=== PATIENT | female | born 1980 | race Two or more races ===

== ENCOUNTER → 2023-07-28 | Outpatient (CLI) | payer OTHER | LOC: M WHC 10:04 | PROVIDERS: ATTEND Nurse Practitioner Family | DX: Z12.31 Encounter for screening mammogram for malignant neoplasm of breast (principal) ==

== ENCOUNTER → 2023-07-28 | Outpatient (REF) | payer OTHER | LOC: M SFHCWAGY 17:56 | PROVIDERS: ATTEND Nurse Practitioner Family | DX: Z12.4 Encounter for screening for malignant neoplasm of cervix (principal) | CPT/HCPCS: 87624; G0123 ==

== ENCOUNTER 2023-12-20 10:14 | Day surgery (SDC) | payer BC, OTHER ==
[~2023-12-20] VITALS: Ht 170.2 cm; Wt 95.3 kg
[2023-12-20] MEDS: NS 1,000 ML IV ONE (06:00)
[~2023-12-20 10:14] MED LIST: DULO1CAP5 PO; SERT50TA29 PO; THERTAB52 PO; TRAZ-186 PO
[2023-12-20] MEDS ORDERED: propofoL 200 MG/20 ML VIAL As Ordered ONE (11:53)
[2023-12-20] MEDS ORDERED: LIDOCAINE 2% 100MG/5ML SDV (FOR ANES.) As Ordered ONE (11:53)
[2023-12-20 12:52] VITALS: TEMP 96.7
[2023-12-20 13:15] VITALS: BP 140/83; O2SAT 98
== END 2023-12-20 13:21 | disposition home or self-care (01) ==
LOC: M OPP 10:14
PROVIDERS: ATTEND Internal Medicine Gastroenterology
DX: Z12.11 Encounter for screening for malignant neoplasm of colon (principal); Z80.0 Family history of malignant neoplasm of digestive organs; D12.7 Benign neoplasm of rectosigmoid junction; K64.4 Residual hemorrhoidal skin tags; K64.8 Other hemorrhoids; K29.70 Gastritis, unspecified, without bleeding; Z15.09 Genetic susceptibility to other malignant neoplasm; Z13.810 Encounter for screening for upper gastrointestinal disorder; Z88.5 Allergy status to narcotic agent

== ENCOUNTER → 2024-08-31 | Outpatient (CLI) | payer BC | LOC: M WHC 10:33 | PROVIDERS: ATTEND Nurse Practitioner Family | DX: Z12.31 Encounter for screening mammogram for malignant neoplasm of breast (principal) ==

== ENCOUNTER → 2024-09-25 | Outpatient (CLI) | payer BC | LOC: M WHC 09:04 | PROVIDERS: ATTEND Nurse Practitioner Family | DX: Z12.31 Encounter for screening mammogram for malignant neoplasm of breast (principal) ==

== ENCOUNTER → 2024-11-02 | Outpatient (REF) | payer BC | LOC: M SFHCPLAZ 12:31 | PROVIDERS: ATTEND Family Medicine | DX: R30.0 Dysuria (principal) ==

== ENCOUNTER → 2025-09-09 | Outpatient (CLI) | payer BC | LOC: M WHC 08:21 | PROVIDERS: ATTEND Nurse Practitioner Family | DX: Z12.31 Encounter for screening mammogram for malignant neoplasm of breast (principal); R92.323 Mammographic fibroglandular density, bilateral breasts ==

== ENCOUNTER → 2025-09-09 | Outpatient (CLI) | payer BC | LOC: M PLAIMG 09:54 | PROVIDERS: ATTEND Nurse Practitioner Family | DX: R10.9 Unspecified abdominal pain (principal) ==